=== PATIENT | female | born 1950 | race Caucasian/White ===

== ENCOUNTER → 2024-01-23 09:51 | Outpatient (REF) | payer OTHER, SELFPAY | LOC: RAD 09:51 | PROVIDERS: ATTENDING PHYSICIAN Surgery Vascular Surgery | DX: I77.9 Disorder of arteries and arterioles, unspecified (principal) | CPT/HCPCS: 93922; 93925 ==

== ENCOUNTER → 2024-02-22 14:40 | Outpatient (REF) | payer OTHER, SELFPAY | LOC: WDC 14:40 | PROVIDERS: ATTENDING PHYSICIAN Nurse Practitioner Adult Health; FAMILY PHYSICIAN Internal Medicine | DX: Z12.31 Encounter for screening mammogram for malignant neoplasm of breast (principal) | CPT/HCPCS: 77063; 77067 ==

== ENCOUNTER → 2024-02-29 09:29 | Outpatient (REF) | payer OTHER, SELFPAY | LOC: WDC 09:29 | PROVIDERS: ATTENDING PHYSICIAN Nurse Practitioner Adult Health; FAMILY PHYSICIAN Internal Medicine | DX: R92.8 Other abnormal and inconclusive findings on diagnostic imaging of breast (principal) | CPT/HCPCS: 76642 ==

== ENCOUNTER → 2024-08-21 08:56 | Outpatient (REF) | payer OTHER, SELFPAY | LOC: RAD 08:56 | PROVIDERS: ATTENDING PHYSICIAN Surgery Vascular Surgery; FAMILY PHYSICIAN Internal Medicine | DX: I77.9 Disorder of arteries and arterioles, unspecified (principal) | CPT/HCPCS: 93922; 93925 ==

== ENCOUNTER → 2024-11-28 09:54 | Outpatient (REF) | payer OTHER, SELFPAY | LOC: RAD 09:54 | PROVIDERS: ATTENDING PHYSICIAN Surgery Vascular Surgery; FAMILY PHYSICIAN Internal Medicine | DX: I77.9 Disorder of arteries and arterioles, unspecified (principal) | CPT/HCPCS: 93922; 93925 ==

== ENCOUNTER → 2025-02-28 09:59 | Outpatient (REF) | payer OTHER, SELFPAY | LOC: WDC 09:59 | PROVIDERS: ATTENDING PHYSICIAN Nurse Practitioner Adult Health; FAMILY PHYSICIAN Internal Medicine | DX: Z12.31 Encounter for screening mammogram for malignant neoplasm of breast (principal) | CPT/HCPCS: 77063; 77067 ==

== ENCOUNTER → 2025-03-03 14:15 | Outpatient (REF) | payer OTHER, SELFPAY | LOC: RAD 14:15 | PROVIDERS: ATTENDING PHYSICIAN Registered Nurse; FAMILY PHYSICIAN Internal Medicine | DX: I77.9 Disorder of arteries and arterioles, unspecified (principal) | CPT/HCPCS: 93922; 93925 ==

== ENCOUNTER → 2025-10-06 08:01 | Outpatient (REF) | payer OTHER, SELFPAY | LOC: RAD 08:01 | PROVIDERS: ATTENDING PHYSICIAN Surgery Vascular Surgery; FAMILY PHYSICIAN Internal Medicine | DX: I77.9 Disorder of arteries and arterioles, unspecified (principal) | CPT/HCPCS: 93922; 93925 ==